=== PATIENT | male | born 1960 | race Caucasian/White ===

== ENCOUNTER 2018-01-23 20:58 | Emergency (ER) | payer OTHER ==
[~2018-01-23] VITALS: Ht 167.6 cm; Wt 81.8 kg
[2018-01-23 21:13] LABS: GLUCOSE,POINT OF CARE 119 MG/DL (70-110)
[2018-01-23] MEDS ORDERED: METF500T6 PO (21:17)
[2018-01-23] MEDS ORDERED: AMLO-511 PO (21:17)
[2018-01-23] MEDS ORDERED: OMEP20 PO (21:17)
[2018-01-23] MEDS ORDERED: ATOR40TA28 PO (21:17)
[2018-01-23] MEDS ORDERED: GLIM4 PO (21:17)
[2018-01-23 22:44] VITALS: BP 124/74
== END 2018-01-23 22:51 | disposition home or self-care (01) ==
LOC: EMS 21:03
DX: S90.122A Contusion of left lesser toe(s) without damage to nail, initial encounter (principal); I10 Essential (primary) hypertension; E11.9 Type 2 diabetes mellitus without complications; E78.00 Pure hypercholesterolemia, unspecified; F17.210 Nicotine dependence, cigarettes, uncomplicated; W22.8XXA Striking against or struck by other objects, initial encounter; Y93.89 Activity, other specified; Y92.89 Other specified places as the place of occurrence of the external cause; Y99.8 Other external cause status
CPT/HCPCS: 99282

== ENCOUNTER 2023-06-02 09:35 | Emergency (ER) | payer OTHER ==
[~2023-06-02] VITALS: Ht 170.2 cm; Wt 81.8 kg
[~2023-06-02 09:35] MED LIST: AMLO-257 PO; ATOR40TA28 PO; GLIM4 PO; METF-1211 PO; OMEP20 PO
[2023-06-02 09:49] VITALS: TEMP 98.3
[2023-06-02] MEDS ORDERED: CEPH-558 PO (10:50)
[2023-06-02 11:02] VITALS: BP 145/81; PULSE 63; RESP 16
== END 2023-06-02 11:18 | disposition home or self-care (01) ==
LOC: EMS 09:41
DX: L03.032 Cellulitis of left toe (principal); E11.9 Type 2 diabetes mellitus without complications; E78.00 Pure hypercholesterolemia, unspecified; I10 Essential (primary) hypertension; F17.210 Nicotine dependence, cigarettes, uncomplicated; Z98.890 Other specified postprocedural states
CPT/HCPCS: 10060; 82962; 99283

== ENCOUNTER 2023-06-25 11:09 | Emergency (ER) | payer OTHER ==
[~2023-06-25] VITALS: Ht 175.3 cm; Wt 82.7 kg
[~2023-06-25 11:09] MED LIST changes: +CEPH-558 PO
[2023-06-25 11:10] VITALS: BP 136/81; PULSE 82; RESP 18; TEMP 97.9
[2023-06-25 13:13] LABS: APPEARANCE,URINE CLEAR (CLEAR); BILIRUBIN,URINE NEGATIVE (NEGATIVE); COLOR,URINE LIGHT YELLOW (YELLOW); GLUCOSE, URINE (UA) TRACE mg/dL (NEGATIVE); KETONES,URINE NEGATIVE (NEGATIVE); LEUKOCYTE ESTERASE ,URINE NEGATIVE (NEGATIVE); NITRATE,URINE NEGATIVE (NEGATIVE); OCCULT BLOOD,URINE NEGATIVE (NEGATIVE); PH,URINE 5.5 (5.0-8.0); PROTEIN,URINE TRACE mg/dL (NEGATIVE); SPECIFIC GRAVITIY, URINE 1.026 (1.003-1.030); UROBILINOGEN,URINE <=1.0 mg/dL (<=1.0)
[2023-06-25 13:30] LABS: RBC,URINE None Seen /HPF (0-2)
[2023-06-25 13:31] LABS: BACTERIA,URINE None Seen /HPF (None Seen); WBC,URINE 0-2 /HPF (0-5)
== END 2023-06-25 14:05 | disposition home or self-care (01) ==
LOC: EMS 11:09
DX: N50.811 Right testicular pain (principal); N50.812 Left testicular pain; E11.9 Type 2 diabetes mellitus without complications; E78.00 Pure hypercholesterolemia, unspecified; I10 Essential (primary) hypertension; F17.210 Nicotine dependence, cigarettes, uncomplicated; Z98.890 Other specified postprocedural states
CPT/HCPCS: 76870; 81001; 87491; 87591; 99284; Z7502